=== PATIENT | female | born 1975 | race Caucasian/White ===

== ENCOUNTER 2016-08-16 15:20 | Emergency (ER) | payer MEDICAID, OTHER ==
[~2016-08-16] VITALS: Ht 167.6 cm; Wt 81.4 kg
[~2016-08-16 15:20] MED LIST: CEPH500C3 PO; CLIN150 PO
[2016-08-16 15:27] VITALS: BP 98/64; PULSE 77; RESP 16; TEMP 98.4; O2SAT 99
--- NOTE | 2016-08-16 16:02 | PD ---
HPI Chief Complaint: Musculoskeletal Complaint Time Seen by Provider: 15:58 Travel History International Travel<30 days: No Contact w/Intl Traveler<30days: No Traveled to known affect area: No History of Present Illness HPI 40-year-old female presents to the emergency room for evaluation of right elbow pain for the past 2 months. Pain is intermittent. Over the past few days it has gotten worse which is a pattern to the emergency room. Patient believes she has an overuse injury but was concerned she may be making it worse. She takes Aleve occasionally for symptoms. 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 Pain is localized to the lateral epicondyle. Pain is worsened with range of motion. PFSH Past Medical History Diminished Hearing: No Influenza Vaccination: No ?: Not Tubal Ligation: Yes Past Surgical History Abdominal Surgery: Yes (C SECTION) Section: Yes (3) Social History Alcohol Use: Yes (SOC) Tobacco Use: Yes (/2 PPD) Substance Use: No (HX COCAINE; LAST USED 2008) Allergies-Medications (Allergen,Severity, Reaction): Coded Allergies: Penicillin (Verified Allergy, Mild, HIVES, 08/16/16) Reported Meds & Prescriptions Reported Meds & Active Scripts Active Ibuprofen 800 Mg Tab 800 Mg PO Q8H PRN Review of Systems Except as stated in HPI: all other systems reviewed are Neg Physical Exam Narrative GENERAL: Well-nourished, well-developed female in no acute distress. Afebrile. Ambulatory. SKIN: Focused skin assessment warm/dry. No erythema or ecchymosis. HEAD: Normocephalic. EYES: No scleral icterus. No injection or drainage. NECK: Supple, trachea midline. No JVD or lymphadenopathy. CARDIOVASCULAR: Regular rate and rhythm without murmurs, gallops, or rubs. RESPIRATORY: Breath sounds equal bilaterally. No accessory muscle use. EXTREMITY: Tenderness to palpation of the lateral epicondyle. Full range of motion in all joints. No edema. 2+ radial pulse. Radial, ulnar, and median nerves intact. Pain with resistance during wrist extension and with passive flexion. Data Data Last Documented VS Vital Signs Date Time Temp Pulse Resp B/P Pulse Ox O2 Delivery O2 Flow Rate FiO2 08/16/16 16:18 20 104/62 08/16/16 15:27 98.4 77 99 MDM Medical Decision Making Medical Screen Exam Complete: Yes Emergency Medical Condition: Yes Medical Record Reviewed: Yes Differential Diagnosis Epicondylitis versus strain versus sprain versus fracture Narrative Course 40-year-old female presents to the emergency room for evaluation of right elbow pain for the past 2 months. No trauma or injury. Patient came in because of worsening of the past 2 days and she is concerned that she has hurting her arm from repeatedly using it. Right upper extremity is neurovascularly intact with 2+ radial pulse. Radial, ulnar, and median nerves intact. Patient uses her elbow repetitively during work. History and physical exam are most consistent with lateral epicondylitis. Patient discharged with orthopedic instructions and told to follow up with PCP or return for worsening symptoms. She understands and agrees to plan. Diagnosis Primary Impression: Lateral epicondylitis (tennis elbow) Qualified Code: M77.11 - Lateral epicondylitis of right elbow Referrals: Primary Care Physician Patient Instructions: General Instructions, Tennis Elbow (ED) Additional Instructions: Rest and drink plenty of fluids. Take ibuprofen with food as directed, as needed for pain. Apply ice to the affected area for 20 minutes at a time, as needed for pain and swelling. Follow-up with a primary care physician. Return to the emergency room for worsening symptoms. Med/Other Pt SpecificInfo: Prescription(s) given Scripts Ibuprofen 800 Mg [id number] Mg PO Q8H PRN (Pain/Inflammation) #21 TAB Ref 0 Prov:Marian Thurman MD 08/16/16 Disposition: 01 DISCHARGE HOME Condition: Stable Kiana Sanchez August 16, 2016 16:02
[2016-08-16] MEDS ORDERED: IBUP800T23 PO (16:03)
[2016-08-16 16:18] VITALS: BP 104/62; RESP 20
== END 2016-08-16 16:19 | disposition home or self-care (01) ==
LOC: PHEFT 15:20
DX: M77.11 Lateral epicondylitis, right elbow (principal); F17.200 Nicotine dependence, unspecified, uncomplicated; Z88.0 Allergy status to penicillin
CPT/HCPCS: 99283